=== PATIENT | male | born 1970 | race Two or more races ===

== ENCOUNTER 2023-10-05 05:52 | Inpatient (IN) | payer OTHER ==
[~2023-10-05] VITALS: Ht 180.3 cm; Wt 168.2 kg
[2023-10-05] MEDS ORDERED: GLIP5TAB16 PO (06:07)
[2023-10-05] MEDS ORDERED: METF-1211 PO (06:07)
[2023-10-05] MEDS ORDERED: ATOR20TA PO (06:07)
[2023-10-05] MEDS ORDERED: LISI-892 PO (06:07)
[2023-10-05] MEDS ORDERED: ASPI-1450 PO (06:07)
[2023-10-05] MEDS ORDERED: METO25XL PO (06:07)
[2023-10-05 06:30] LABS: GLUCOMETER DEV NAME(LOC) ERT.5; GLUCOSE,POINT OF CARE 245 MG/DL (70-110)
[2023-10-05 06:56] LABS: BASOPHILS % (AUTO) 0.4 % (0.0-2.0); EOSINOPHILS % (AUTO) 1.1 % (1.0-6.0); HEMATOCRIT 43.8 % (41-53); HEMOGLOBIN 14.8 g/dL (13.5-17.5); LYMPHOCYTES # (AUTO) 1.6 K/uL (1.0-4.8); LYMPHOCYTES % (AUTO) 14.3 % (22.0-44.0); MEAN CORPUSCULAR HEMOGLOBIN 29.4 pg (26.0-34.0); MEAN CORPUSCULAR HGB CONC 33.8 G/dL (31.0-37.0); MEAN CORPUSCULAR VOLUME 87 fL (80-100); NEUTROPHILS # (AUTO) 8.4 K/uL (1.8-7.7); NEUTROPHILS % (AUTO) 75.2 % (40.0-70.0); PLATELET COUNT (AUTO) 154 K/uL (150-450); RED BLOOD CELL COUNT(AUTO) 5.03 MIL/uL (4.50-5.90); RED CELL DISTRIBUTION WIDTH 13.3 % (11.5-14.5); WHITE BLOOD COUNT (AUTO) 11.2 K/uL (4.5-11.0)
[2023-10-05] MEDS: PIPERACILLIN SODIUM/TAZOBACTAM 4.5 GM in DEXTROSE 5%-WATER 100 ML IV ONE (07:00)
[2023-10-05 07:10] LABS: ANION GAP 15 mmol/L (8-16); CALCIUM, TOTAL 8.6 mg/dL (8.8-10.5); CARBON DIOXIDE 23 mmol/L (22-29); CHLORIDE 100 mmol/L (98-107); CREATININE 0.86 mg/dL (0.60-1.30); GLOMERULAR FILTR. RATE CALC > 60 mL/min (>60); GLUCOSE,RANDOM 236 mg/dL (70-110); POTASSIUM 3.7 mmol/L (3.5-5.1); SODIUM SERUM 138 mmol/L (136-145); UREA NITROGEN, BLOOD 14 mg/dL (7-18)
[2023-10-05 07:16] LABS: ALANINE AMINOTRANSFERASE 36 U/L (12-78); ALBUMIN 3.1 g/dL (3.4-5.0); ALKALINE PHOSPHATASE 119 U/L (46-116); ASPARTATE AMINOTRANSFERASE 18 U/L (15-37); TOTAL PROTEIN, SERUM 7.7 g/dL (6.4-8.2)
[2023-10-05 07:22] LABS: LACTIC ACID 1.3 mmol/L (0.4-2.0)
[2023-10-05 07:40] LABS: HEMOGLOBIN A1C 12.8 % (3.8-5.6)
[2023-10-05] MEDS: LIDOCAINE 1% 10 ML VIAL SQ ONE (07:53)
[2023-10-05] MEDS ORDERED: MAGNESIUM HYDROXIDE SUSPENSION 30 ML UDCUP PO PRN (08:30)
[2023-10-05] MEDS ORDERED: OxyCODONE HCL/ACETAMINOPHEN 5-325 MG TABLET PO PRN ×2 (08:30)
[2023-10-05] MEDS ORDERED: DEXTROSE 50%-WATER 25 GM/50 ML SYRINGE IVP PRN (08:30)
[2023-10-05] MEDS ORDERED: ONDANSETRON HCL 4 MG/2 ML VIAL IVP PRN (08:30)
[2023-10-05] MEDS: SODIUM CHLORIDE 0.9% 1,000 ML IV ONE (08:56)
[2023-10-05] MEDS: DOCUSATE SODIUM 100 MG CAPSULE PO SCH (08:57)
[2023-10-05] MEDS: FAMOTIDINE 20 MG TABLET PO SCH (08:57)
[2023-10-05] MEDS: VANCOMYCIN 1.75GM/WATER(PEG) 350 ML IV ONE (09:06)
[2023-10-05] MEDS: INSULIN LISPRO 100 UNITS/ML SQ PRN (10:02)
[2023-10-05 10:26] LABS: GLUCOMETER DEV NAME(LOC) ERT.5; GLUCOSE,POINT OF CARE 213 MG/DL (70-110)
[2023-10-05 10:53] LABS: APPEARANCE,URINE CLEAR (CLEAR); BILIRUBIN,URINE NEGATIVE (NEGATIVE); COLOR,URINE LIGHT YELLOW (YELLOW); GLUCOSE, URINE (UA) >=1000 mg/dL (NEGATIVE); KETONES,URINE 80-100 mg/dL (NEGATIVE); LEUKOCYTE ESTERASE ,URINE NEGATIVE (NEGATIVE); NITRATE,URINE NEGATIVE (NEGATIVE); OCCULT BLOOD,URINE NEGATIVE (NEGATIVE); PROTEIN,URINE NEGATIVE (NEGATIVE); SPECIFIC GRAVITIY, URINE 1.039 (1.003-1.030); UROBILINOGEN,URINE <=1.0 mg/dL (<=1.0)
[2023-10-05 10:57] LABS: BACTERIA,URINE None Seen /HPF (None Seen); RBC,URINE None Seen /HPF (0-2); WBC,URINE 0-2 /HPF (0-5)
[2023-10-05 11:01] VITALS: BP 129/71; PULSE 97; RESP 18; TEMP 100.5
[2023-10-05] MEDS: PIPERACILLIN/TAZO 3.375 GM/D5W 50 ML IV SCH (14:54)
[2023-10-05] MEDS: HEPARIN SODIUM,PORCINE 5,000 UNITS/ML VIAL SQ SCH (18:06)
[2023-10-05 18:10] LABS: GLUCOMETER DEV NAME(LOC) 6S.2; GLUCOSE,POINT OF CARE 241 MG/DL (70-110)
[2023-10-05 18:15] VITALS: TEMP 102.7
[2023-10-05] MEDS: MetFORMIN HCL 500 MG TABLET PO SCH (18:48)
[2023-10-05] MEDS: ACETAMINOPHEN 325 MG TABLET PO PRN (18:49)
[2023-10-05 19:36] LABS: GLUCOMETER DEV NAME(LOC) 6N.2B; GLUCOSE,POINT OF CARE 257 MG/DL (70-110)
[2023-10-05 19:49] VITALS: BP 135/78; PULSE 106; RESP 20; TEMP 101.6
[2023-10-05] MEDS: VANCOMYCIN 1.75GM/WATER(PEG) 350 ML IV SCH (21:31)
[2023-10-05 23:35] LABS: GLUCOMETER DEV NAME(LOC) 6N.2B; GLUCOSE,POINT OF CARE 264 MG/DL (70-110)
[2023-10-05 23:36] VITALS: TEMP 99.1
[2023-10-06 00:20] LABS: APPEARANCE,URINE CLEAR (CLEAR); BILIRUBIN,URINE NEGATIVE (NEGATIVE); COLOR,URINE LIGHT YELLOW (YELLOW); GLUCOSE, URINE (UA) >=1000 mg/dL (NEGATIVE); LEUKOCYTE ESTERASE ,URINE NEGATIVE (NEGATIVE); NITRATE,URINE NEGATIVE (NEGATIVE); OCCULT BLOOD,URINE NEGATIVE (NEGATIVE); PROTEIN,URINE NEGATIVE (NEGATIVE); SPECIFIC GRAVITIY, URINE 1.034 (1.003-1.030); UROBILINOGEN,URINE <=1.0 mg/dL (<=1.0)
[2023-10-06 00:28] LABS: RBC,URINE None Seen /HPF (0-2); WBC,URINE None Seen /HPF (0-5)
[2023-10-06 00:29] LABS: BACTERIA,URINE None Seen /HPF (None Seen); SQUAMOUS EPITHELIAL CELL,UR Few /LPF (None Seen)
[2023-10-06 05:31] VITALS: BP 120/75; PULSE 108; RESP 20; TEMP 98.8
[2023-10-06 07:43] LABS: ANION GAP 16 mmol/L (8-16); CALCIUM, TOTAL 8.4 mg/dL (8.8-10.5); CARBON DIOXIDE 19 mmol/L (22-29); CHLORIDE 100 mmol/L (98-107); CREATININE 0.77 mg/dL (0.60-1.30); GLOMERULAR FILTR. RATE CALC > 60 mL/min (>60); GLUCOSE,RANDOM 208 mg/dL (70-110); SODIUM SERUM 135 mmol/L (136-145); UREA NITROGEN, BLOOD 16 mg/dL (7-18)
[2023-10-06 07:56] LABS: GLUCOMETER DEV NAME(LOC) 6N.2B; GLUCOSE,POINT OF CARE 226 MG/DL (70-110)
[2023-10-06 08:00] VITALS: BP 128/73; PULSE 100; RESP 19; TEMP 98.9
[2023-10-06 13:41] LABS: GLUCOMETER DEV NAME(LOC) 6N.2B; GLUCOSE,POINT OF CARE 274 MG/DL (70-110)
[2023-10-06 17:28] VITALS: BP 134/71; PULSE 101; RESP 19; TEMP 98.4
[2023-10-06 18:31] LABS: GLUCOMETER DEV NAME(LOC) 6N.2B; GLUCOSE,POINT OF CARE 286 MG/DL (70-110)
[2023-10-06 20:20] VITALS: BP 151/97; PULSE 107; RESP 20; TEMP 99.2
[2023-10-06 23:26] LABS: GLUCOMETER DEV NAME(LOC) 4E.2; GLUCOSE,POINT OF CARE 350 MG/DL (70-110)
[2023-10-07 06:31] LABS: BASOPHILS % (AUTO) 0.5 % (0.0-2.0); EOSINOPHILS % (AUTO) 2.1 % (1.0-6.0); HEMATOCRIT 39.7 % (41-53); LYMPHOCYTES # (AUTO) 1.4 K/uL (1.0-4.8); LYMPHOCYTES % (AUTO) 15.1 % (22.0-44.0); MEAN CORPUSCULAR HEMOGLOBIN 30.5 pg (26.0-34.0); MEAN CORPUSCULAR HGB CONC 35.2 G/dL (31.0-37.0); MEAN CORPUSCULAR VOLUME 87 fL (80-100); MONOCYTES # (AUTO) 0.8 K/uL (0.1-1.0); MONOCYTES % (AUTO) 9.1 % (2.0-9.0); NEUTROPHILS # (AUTO) 6.7 K/uL (1.8-7.7); NEUTROPHILS % (AUTO) 73.2 % (40.0-70.0); PLATELET COUNT (AUTO) 165 K/uL (150-450); RED BLOOD CELL COUNT(AUTO) 4.57 MIL/uL (4.50-5.90); RED CELL DISTRIBUTION WIDTH 12.9 % (11.5-14.5); WHITE BLOOD COUNT (AUTO) 9.2 K/uL (4.5-11.0)
[2023-10-07 06:48] LABS: ANION GAP 13 mmol/L (8-16); CALCIUM, TOTAL 8.2 mg/dL (8.8-10.5); CARBON DIOXIDE 20 mmol/L (22-29); CHLORIDE 98 mmol/L (98-107); CREATININE 0.71 mg/dL (0.60-1.30); GLOMERULAR FILTR. RATE CALC > 60 mL/min (>60); GLUCOSE,RANDOM 245 mg/dL (70-110); POTASSIUM 3.8 mmol/L (3.5-5.1); SODIUM SERUM 131 mmol/L (136-145); UREA NITROGEN, BLOOD 16 mg/dL (7-18); VANCOMYCIN,RANDOM 11.2 mcg/mL (25.0-50.0)
[2023-10-07 08:11] LABS: GLUCOMETER DEV NAME(LOC) 6N.2B; GLUCOSE,POINT OF CARE 260 MG/DL (70-110)
[2023-10-07 08:24] VITALS: BP 115/66; PULSE 106; RESP 18; TEMP 99.7
[2023-10-07] MEDS ORDERED: SULF-261 PO (08:57)
[2023-10-07] MEDS: GlipiZIDE 5 MG TABLET PO ONE (10:36)
[2023-10-07] MEDS ORDERED: SODIUM CHLORIDE 0.9% 100 ML ONE (11:18)
[2023-10-07] MEDS ORDERED: IOHEXOL 350 MG/ML 100 ML VIAL ONE (11:19)
[2023-10-07 15:20] VITALS: BP 133/81; PULSE 108; RESP 18; TEMP 98.8
[2023-10-07] MEDS: VANCOMYCIN 1.5 GM/WATER(PEG) 300 ML IV SCH (16:17)
[2023-10-07] MEDS: GlipiZIDE 5 MG TABLET PO SCH (17:41)
[2023-10-07 19:10] VITALS: BP 127/79; PULSE 104; RESP 18; TEMP 99.5
[2023-10-07 19:11] LABS: GLUCOMETER DEV NAME(LOC) 6N.2B; GLUCOSE,POINT OF CARE 301 MG/DL (70-110)
[2023-10-07 19:11] LABS: GLUCOMETER DEV NAME(LOC) 6N.2B; GLUCOSE,POINT OF CARE 320 MG/DL (70-110)
[2023-10-08 06:11] VITALS: BP 127/74; PULSE 91; RESP 18; TEMP 98.4
[2023-10-08 07:38] VITALS: BP 138/72; PULSE 91; RESP 18; TEMP 98.3
[2023-10-08 07:56] LABS: GLUCOMETER DEV NAME(LOC) 4E.2; GLUCOSE,POINT OF CARE 290 MG/DL (70-110)
[2023-10-08 07:56] LABS: GLUCOMETER DEV NAME(LOC) 4E.2; GLUCOSE,POINT OF CARE 229 MG/DL (70-110)
[2023-10-08 10:56] LABS: ANION GAP 13 mmol/L (8-16); CALCIUM, TOTAL 8.2 mg/dL (8.8-10.5); CARBON DIOXIDE 21 mmol/L (22-29); CHLORIDE 98 mmol/L (98-107); CREATININE 0.72 mg/dL (0.60-1.30); GLOMERULAR FILTR. RATE CALC > 60 mL/min (>60); GLUCOSE,RANDOM 316 mg/dL (70-110); POTASSIUM 3.6 mmol/L (3.5-5.1); SODIUM SERUM 132 mmol/L (136-145); UREA NITROGEN, BLOOD 11 mg/dL (7-18)
[2023-10-08 12:41] LABS: GLUCOMETER DEV NAME(LOC) 6S.2; GLUCOSE,POINT OF CARE 268 MG/DL (70-110)
== END 2023-10-08 13:30 | disposition home or self-care (01) | DRG 872 ==
LOC: EMS 05:53 → 6N 09:25
PROVIDERS: ADMIT Internal Medicine; ATTEND Internal Medicine
PROC: 0V95XZZ Drainage of Scrotum, External Approach (ICD-10-PCS; principal; 2023-10-05)
DX: A41.9 Sepsis, unspecified organism (principal); L02.214 Cutaneous abscess of groin; E44.0 Moderate protein-calorie malnutrition; Z68.43 Body mass index [BMI] 50.0-59.9, adult; E66.01 Morbid (severe) obesity due to excess calories; E11.65 Type 2 diabetes mellitus with hyperglycemia; G47.30 Sleep apnea, unspecified; I10 Essential (primary) hypertension; I25.10 Atherosclerotic heart disease of native coronary artery without angina pectoris; Q55.64 Hidden penis; Z79.899 Other long term (current) drug therapy
CPT/HCPCS: 71045; 72192; 74177; 76870; 80048; 80053; 80202; 81001; 82962; 83036; 83605; 85025; 87040; 93005; 99285; J1644; J1815; J2543; J3490; J7030; J7050; J7060; Q9967; 36415-L1; 36415-TC